=== PATIENT | female | born 1960 | race Caucasian/White ===

== ENCOUNTER 2022-10-12 13:33 | Outpatient (CLI) | payer OTHER, SELFPAY ==
[2022-10-12 22:17] LABS: Basophils Absolute Auto 0.04 K/uL (0.00-0.30); Basophils Percent Auto 0.5 % (0.0-3.0); Eosinophils Absolute Auto 0.12 K/uL (0.00-0.50); Eosinophils Percent Auto 1.6 % (0.0-7.0); Hematocrit 36.7 % (33.0-51.0); Hemoglobin* 12.3 gm/dL (12.0-16.0); Immature Granulocytes Abs Auto 0.01 K/uL (0.00-0.30); Immature Granulocytes Pct Auto 0.1 %; Lymphocytes Percent Auto 15.5 % (20-44); Mean Corpuscular HGB Conc 34 gm/dL (32-36); Mean Corpuscular Hemoglobin 31 pg (26-34); Mean Corpuscular Volume 91 fL (80-100); Monocytes Percent Auto 8.6 % (0.0-11.0); Neutrophils Percent Auto 73.7 % (42.0-72.0); Platelet Count* 233 K/uL (140-440); RDW Coefficient of Variation % 14.4 % (11.5-15.5); Red Blood Count 4.03 m/uL (4.00-5.20); White Blood Count* 7.56 K/uL (4.50-11.00)
[2022-10-12 22:23] LABS: Iron* 40 ug/dL (37-170)
[2022-10-12 22:26] LABS: Slide Review Reflex No
[2022-10-12 22:33] LABS: Percent Iron Saturation 12 % (20-50); Total Iron Binding Capacity 345 ug/dL (265-497)
[2022-10-13 06:32] LABS: Glucose* 86 mg/dL (60-115)
== END 2022-10-12 13:34 | disposition home or self-care (01) ==
PROVIDERS: Visit Provider Nurse Practitioner Family
DX: L02.91 Cutaneous abscess, unspecified (principal); Z13.0 Encounter for screening for diseases of the blood and blood-forming organs and certain disorders involving the immune mechanism
CPT/HCPCS: 82947; 83540; 83550; 85025; 87070; 87186

== ENCOUNTER 2022-10-22 07:54 | Outpatient (CLI) | payer OTHER, SELFPAY | END 2022-10-22 07:55 | disposition home or self-care (01) | PROVIDERS: PCP Nurse Practitioner Family; Visit Provider Nurse Practitioner Family | DX: N76.4 Abscess of vulva (principal); E88.81 Metabolic syndrome and other insulin resistance | CPT/HCPCS: 99213 ==

== ENCOUNTER 2022-10-22 10:09 | Outpatient (CLI) | payer OTHER, SELFPAY ==
--- NOTE | 2022-10-22 10:00 | CRLHL7_ITS ---
For Patients: As a result of the Century Cures Act, medical imaging exams and procedure reports are released immediately into your electronic medical record. You may view this report before your referring provider. If you have questions, please contact your health care provider. INDICATION: Perirectal abscess. TECHNIQUE: CT pelvis acquired with 112 cc Isovue 370 IV contrast. COMPARISON: None. FINDINGS: Pelvis: Subtle fullness with tiny locule of air in the 1:00 position (series 2/image 75). Additional locule of air favored to be in the gluteal cleft (series 2/image 87). Otherwise, unremarkable. Bones: Unremarkable for age. IMPRESSION: Subtle fullness with tiny locule of air in the 1 o`clock position, which could suggest tiny microabscess versus air in the vagina. Additional locule of air favored to be in the gluteal cleft. Otherwise, no drainable fluid collections. If there is persistent clinical concern, consider nonemergent MRI (fistula protocol). Please note that all CT scans at this facility use dose modulation, iterative reconstruction, and/or weight-based dosing when appropriate to reduce radiation dose to as low as reasonably achievable. Dictated by Eric Hernandez MD @ 10/22/2022 12:46:28 PM (Electronically Signed)
[2022-10-22 10:38] LABS: Creatinine* 0.7 mg/dL (0.5-1.5); Estimated Glomerular Filt Rate 99 ml/min
== END 2022-10-22 10:10 | disposition home or self-care (01) ==
LOC: CT 10:10
PROVIDERS: PCP Nurse Practitioner Family; Visit Provider Nurse Practitioner Family
DX: K61.1 Rectal abscess (principal); R10.32 Left lower quadrant pain
CPT/HCPCS: 36415; 72193; 82565; 99213; Q9967

== ENCOUNTER 2022-12-18 08:15 | Outpatient (CLI) | payer OTHER, SELFPAY | END 2022-12-18 08:16 | disposition home or self-care (01) | LOC: NFLDREF 22:13 | PROVIDERS: PCP Nurse Practitioner Family; Referring Provider Nurse Practitioner Family; Visit Provider Nurse Practitioner Family | DX: Z13.6 Encounter for screening for cardiovascular disorders (principal) | CPT/HCPCS: 80061 ==

== ENCOUNTER 2023-02-15 11:09 | Outpatient (CLI) | payer OTHER, SELFPAY ==
--- NOTE | 2023-02-15 11:30 | CRLHL7_ITS ---
For Patients: As a result of the Century Cures Act, medical imaging exams and procedure reports are released immediately into your electronic medical record. You may view this report before your referring provider. If you have questions, please contact your health care provider. BILATERAL SCREENING MAMMOGRAM WITH COMPUTER-AIDED DETECTION AND TOMOSYNTHESIS TECHNIQUE: CC and MLO views were obtained. These mammographic images have been obtained using full-field digital technique. These mammographic images were interpreted with the benefit of computer-aided detection. Breast Tomosynthesis was used in this interpretation. COMPARISON FILM: 02/03/22, 11/25/18, 10/29/16. FINDINGS: There are scattered areas of fibroglandular density IMPRESSION: There is no radiographic evidence for malignancy. ASSESSMENT: BI-RADS Category 1: Negative RECOMMENDATION: Routine screening mammogram in 1 year. A lay language report of this examination will be provided to the patient. Camacho Vieira M.D. Diagnostic Radiologist [email or web address] DAVE/Dictated by: Camacho Vieira MD @ 02/15/2023 12:07:00 PM (Electronically Signed)
== END 2023-02-15 11:10 | disposition home or self-care (01) ==
LOC: MAMMO 11:10
PROVIDERS: PCP Nurse Practitioner Family; Visit Provider Nurse Practitioner Family
DX: Z12.31 Encounter for screening mammogram for malignant neoplasm of breast (principal)
CPT/HCPCS: 77063; 77067

== ENCOUNTER 2024-05-01 10:55 | Outpatient (CLI) | payer OTHER, SELFPAY | END 2024-05-01 10:56 | disposition home or self-care (01) | PROVIDERS: PCP Nurse Practitioner Family; Visit Provider Nurse Practitioner Family | DX: E78.1 Pure hyperglyceridemia (principal); I10 Essential (primary) hypertension; Z98.84 Bariatric surgery status; Z13.21 Encounter for screening for nutritional disorder; Z13.29 Encounter for screening for other suspected endocrine disorder | CPT/HCPCS: 80053; 80061; 82306; 82607; 84443; 85025 ==

== ENCOUNTER 2024-05-09 11:57 | Outpatient (CLI) | payer OTHER, SELFPAY | END 2024-05-09 11:58 | disposition home or self-care (01) | LOC: NFLDREF 05-11 09:42 | PROVIDERS: PCP Nurse Practitioner Family; Referring Provider Nurse Practitioner Family; Visit Provider Nurse Practitioner Family | DX: D64.9 Anemia, unspecified (principal); D72.819 Decreased white blood cell count, unspecified | CPT/HCPCS: 82728; 82746; 83540; 83550; 85045; 87086; 87186 ==

== ENCOUNTER 2024-06-26 06:15 | Outpatient (CLI) | payer OTHER, SELFPAY ==
--- NOTE | 2024-06-26 08:10 | W.ANESCHARGE ---
Anesthesia Charges Start Date/Time Anesthesia Start Date: 06/26/24 Anesthesia Start Time: 07:20 Stop Date/Time Anesthesia Stop Date: 06/26/24 Anesthesia Stop Time: 08:18
--- NOTE | 2024-06-26 08:56 | W.ANESCHARGE ---
Anesthesia Charges Start Date/Time Anesthesia Start Date: 06/26/24 Anesthesia Start Time: 07:20 Stop Date/Time Anesthesia Stop Date: 06/26/24 Anesthesia Stop Time: 08:18 Summary Extremes of Age - Over 70 or under 1: MDA
--- NOTE | 2024-06-26 08:58 | W.ANESCHARGE ---
Anesthesia Charges Start Date/Time Anesthesia Start Date: 06/26/24 Anesthesia Start Time: 07:20 Stop Date/Time Anesthesia Stop Date: 06/26/24 Anesthesia Stop Time: 08:18
== END 2024-06-26 06:16 | disposition home or self-care (01) ==
LOC: OP CLINIC 06:15
PROVIDERS: PCP Nurse Practitioner Family; Visit Provider Internal Medicine
DX: Z12.11 Encounter for screening for malignant neoplasm of colon (principal); D12.8 Benign neoplasm of rectum; Z86.0100 Personal history of colon polyps, unspecified; K57.30 Diverticulosis of large intestine without perforation or abscess without bleeding; Z98.84 Bariatric surgery status; R13.10 Dysphagia, unspecified; D64.9 Anemia, unspecified
CPT/HCPCS: 00813; 43239; 45385; 88305; 99100; J2704; J3490

== ENCOUNTER 2024-07-11 12:52 | Outpatient (CLI) | payer OTHER, SELFPAY ==
--- NOTE | 2024-07-11 13:00 | CRLHL7_ITS ---
For Patients: As a result of the Cures Act, medical imaging exams and procedure reports are released immediately into your electronic medical record. You may view this report before your referring provider. If you have questions, please contact your health care provider. BILATERAL SCREENING MAMMOGRAM WITH COMPUTER-AIDED DETECTION AND TOMOSYNTHESIS TECHNIQUE: CC and MLO views were obtained. These mammographic images have been obtained using full-field digital technique. These mammographic images were interpreted with the benefit of computer-aided detection. Breast Tomosynthesis was used in this interpretation. COMPARISON FILM: 02/15/23, 02/03/22, 11/25/18. FINDINGS: There are scattered areas of fibroglandular density IMPRESSION: There is no radiographic evidence for malignancy. ASSESSMENT: BI-RADS Category 1: Negative RECOMMENDATION: Routine screening mammogram in 1 year. A lay language report of this examination will be provided to the patient. Camacho Vieira M.D. Diagnostic Radiologist [email or web address] MARCO A/reyes Transcribed: 2:16 p.eliane chambers/Dictated by: Camacho Vieira MD @ 07/13/2024 10:56:00 AM (Electronically Signed)
== END 2024-07-11 12:53 | disposition home or self-care (01) ==
LOC: MAMMO 12:52
PROVIDERS: PCP Nurse Practitioner Family; Visit Provider Nurse Practitioner Family
DX: Z12.31 Encounter for screening mammogram for malignant neoplasm of breast (principal)
CPT/HCPCS: 77063; 77067